=== PATIENT | female | born 2000 | race Caucasian/White ===

== ENCOUNTER 2019-09-15 21:56 | Emergency (ER) | payer BC, OTHER ==
[~2019-09-15] VITALS: Ht 165 cm; Wt 70.5 kg
[2019-09-15] MEDS ORDERED: KETOROLAC 30 MG/ML VIAL IVP ONE (22:30)
[2019-09-15 22:31] LABS: BASOPHILS % (AUTO) 0 % (0-10); EOSINOPHILS % (AUTO) 0 % (0-10); HEMATOCRIT 45 % (35-52); HEMOGLOBIN 15.1 G/DL (11.5-16.0); LYMPHOCYTES # (AUTO) 2.1 X 10^3 (1.0-4.0); LYMPHOCYTES % (AUTO) 28 % (12-44); MEAN CORPUSCULAR HEMOGLOBIN 32 PG (25-34); MEAN CORPUSCULAR HGB CONC 34 G/DL (32-36); MEAN CORPUSCULAR VOLUME 95 FL (80-99); MEAN PLATELET VOLUME 10.5 FL (7.4-10.4); MONOCYTES # (AUTO) 0.7 X 10^3 (0.0-1.0); MONOCYTES % (AUTO) 9 % (0-12); NEUTROPHILS # (AUTO) 4.8 X 10^3 (1.8-7.8); NEUTROPHILS % (AUTO) 63 % (42-75); PLATELET COUNT 293 10^3/uL (130-400); RED CELL DISTRIBUTION WIDTH 13.2 % (10.0-14.5); WHITE BLOOD COUNT 7.7 10^3/uL (4.3-11.0)
[2019-09-15 22:34] LABS: ALBUMIN 4.5 GM/DL (3.2-4.5); CHLORIDE 107 MMOL/L (98-107); SODIUM 138 MMOL/L (135-145)
[2019-09-15 22:35] LABS: CALCIUM 9.3 MG/DL (8.5-10.1)
[2019-09-15 22:37] LABS: GLUCOSE 105 MG/DL (70-105); TOTAL PROTEIN 8.1 GM/DL (6.4-8.2)
[2019-09-15 22:38] LABS: BILIRUBIN,TOTAL 0.4 MG/DL (0.1-1.0); CARBON DIOXIDE 18 MMOL/L (21-32)
[2019-09-15 22:40] LABS: ALKALINE PHOSPHATASE 51 U/L (40-136); CREATININE SERUM 0.82 MG/DL (0.60-1.30); GFR ESTIMATED > 60
[2019-09-15 22:41] LABS: BUN/CREATININE RATIO 15
[2019-09-15 22:43] LABS: ALANINE AMINOTRANSFERASE 17 U/L (0-55)
--- NOTE | 2019-09-15 22:48 | ED Chest Pain ---
General Chief Complaint: Chest Pain Stated Complaint: CP Nursing Triage Note: Pt ambulates to [facility] 6 with c/o left sided CP that radiates to left arm x 20 min, pain is worse with pressure. 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 Pt is in sinus rythym on arrival, pulse 93. Nursing Sepsis Screen: No Definite Risk Source: patient Exam Limitations: no limitations History of Present Illness Date Seen by Provider: Sep 15, 2019 Time Seen by Provider: 22:05 Initial Comments This 19-year-old young lady presents to the emergency room with left upper chest pain and numbness that radiated into the left arm this started suddenly while she was talking on the phone. Deep breathing, movement, and walking worsened of the symptoms. They have improved now, but the chest pain is still present to a lesser degree. She has no neurologic deficits. She denies any cough, fever, travel, or exposures to COVID-19 or persons under investigation. She has history of cardiac surgery as a very young child. 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 Pain is reproducible on palpation of the left upper chest. She denies and takes control. She believes she is starting her period now. She denies smoking and rarely drinks alcohol. She appears anxious and is tearful. Allergies and Home Medications Allergies Coded Allergies: No Known Drug Allergies (Unverified , 09/15/19) Patient Home Medication List Home Medication List Reviewed: Yes Review of Systems Review of Systems Constitutional: no symptoms reported EENTM: No Symptoms Reported Respiratory: See HPI Cardiovascular: See HPI Gastrointestinal: No Symptoms Reported Genitourinary: No Symptoms Reported Musculoskeletal: see HPI Skin: no symptoms reported Psychiatric/Neurological: See HPI Endocrine: No Symptoms Reported Hematologic/Lymphatic: No Symptoms Reported Past Udyqpim-Ngupzn-Lklhmi Hx Patient Social History Alcohol Use: Rarely Uses Recreational Drug Use: No Smoking Status: Never a Smoker 2nd Hand Smoke Exposure: No Recent Foreign Travel: No Contact w/Someone Who Travel: No Recent Infectious Disease Expo: No Recent Hopitalizations: No Physical Abuse: No Sexual Abuse: No Mistreated: No Fear: No Seasonal Allergies Seasonal Allergies: No Past Medical History Surgeries: Yes (AV canal repair at 1 yrs old ) Cardiac Respiratory: No Cardiac: Yes (AV Canal Sx, congenital heart defect) Neurological: No : No Last Menstrual Period: Sep 15, 2019 Reproductive Disorders: No Genitourinary: No Gastrointestinal: No Musculoskeletal: No Endocrine: No HEENT: No Cancer: No Psychosocial: Yes ADD/ADHD, Anxiety, Depression Integumentary: No Blood Disorders: No Physical Exam Vital Signs Vital Signs - First Documented 09/15/19 22:27 Temp 36.4 Pulse 93 Resp 18 B/P (MAP) 131/90 (104) Pulse Ox 98 O2 Delivery Room Air Capillary Refill : Less Than 3 Seconds Height, Weight, BMI Height: '" Weight: lbs. oz. 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, Other (anxious, tearful) Skin: Normal Color, Warm/Dry Progress/Results/Core Measures Results/Orders Lab Results Laboratory Tests Test 09/15/19 22:13 09/16/19 01:05 Range/Units White Blood Count 7.7 4.3-11.0 10^3/uL Red Blood Count 4.69 4.35-5.85 10^6/uL Hemoglobin 15.1 11.5-16.0 G/DL Hematocrit 45 35-52 % Mean Corpuscular Volume 95 80-99 FL Mean Corpuscular Hemoglobin 32 25-34 PG Mean Corpuscular Hemoglobin Concent 34 32-36 G/DL Red Cell Distribution Width 13.2 10.0-14.5 % Platelet Count 293 130-400 10^3/uL Mean Platelet Volume 10.5 H 7.4-10.4 FL Neutrophils (%) (Auto) 63 42-75 % Lymphocytes (%) (Auto) 28 12-44 % Monocytes (%) (Auto) 9 0-12 % Eosinophils (%) (Auto) 0 0-10 % Basophils (%) (Auto) 0 0-10 % Neutrophils # (Auto) 4.8 1.8-7.8 X 10^3 Lymphocytes # (Auto) 2.1 1.0-4.0 X 10^3 Monocytes # (Auto) 0.7 0.0-1.0 X 10^3 Eosinophils # (Auto) 0.0 0.0-0.3 10^3/uL Basophils # (Auto) 0.0 0.0-0.1 10^3/uL Prothrombin Time 12.9 12.2-14.7 SEC INR Comment 0.9 0.8-1.4 Activated Partial Thromboplast Time 26 24-35 SEC D-Dimer 0.36 0.00-0.49 UG/ML Sodium Level 138 135-145 MMOL/L Potassium Level 4.0 3.6-5.0 MMOL/L Chloride Level 107 98-107 MMOL/L Carbon Dioxide Level 18 L 21-32 MMOL/L Anion Gap 13 5-14 MMOL/L Blood Urea Nitrogen 12 7-18 MG/DL Creatinine 0.82 0.60-1.30 MG/DL Estimat Glomerular Filtration Rate > 60 BUN/Creatinine Ratio 15 Glucose Level 105 70-105 MG/DL Calcium Level 9.3 8.5-10.1 MG/DL Corrected Calcium 8.9 8.5-10.1 MG/DL Magnesium Level 2.0 1.6-2.4 MG/DL Total Bilirubin 0.4 0.1-1.0 MG/DL Aspartate Amino Transf (AST/SGOT) 48 H 5-34 U/L Alanine Aminotransferase (ALT/SGPT) 17 0-55 U/L Alkaline Phosphatase 51 40-136 U/L Myoglobin 463.8 H 10.0-92.0 NG/ML Troponin I < 0.028 < 0.028 <0.028 NG/ML Total Protein 8.1 6.4-8.2 GM/DL Albumin 4.5 3.2-4.5 GM/DL Serum Test, Qualitative NEGATIVE NEGATIVE My Orders Orders - JESSE ALEJANDRO MD Cbc With Automated Diff (09/15/19 22:19) Magnesium (09/15/19 22:19) Chest 1 View, Ap/Pa Only (09/15/19 22:19) Ekg Tracing (09/15/19 22:19) Comprehensive Metabolic Panel (09/15/19 22:19) Myoglobin Serum (09/15/19 22:19) Protime With Inr (09/15/19:) Partial Thromboplastin Time (09/15/19:) O2 (09/15/19 22:19) Monitor-Rhythm Ecg Trace Only (09/15/19:) Lipid Panel (09/16/19 06:00) Ed Iv/Invasive Line Start (09/15/19:19) Troponin I (09/15/19:19) Hcg,Qualitative Serum (09/15/19:) Ketorolac Injection (Toradol Injection) (09/15/19 22:30) Fibrin Degradation Products (09/15/19 22:13) Troponin I (09/16/19 00:45) Aspirin Chewable Tablet (Baby Aspirin Ch (09/15/19 23:15) Medications Given in ED Current Medications Medications Dose Ordered Sig/Celestino Route Start Time Stop Time Status Last Admin Dose Admin Aspirin 324 mg ONCE ONCE PO 09/15/19 23:15 09/15/19 23:16 DC 09/15/19 23:15 324 MG Ketorolac Tromethamine 15 mg ONCE ONCE IVP 09/15/19 22:30 09/15/19 22:31 DC 09/15/19 22:25 15 MG Vital Signs/I&O 09/15/19 09/15/19 22:27 22:33 Temp 36.4 Pulse 93 Resp 18 B/P (MAP) 131/90 (104) Pulse Ox 98 O2 Delivery Room Air Room Air Blood Pressure Mean: 104 Progress Progress Note #1: Time: 23:05 Progress Note Workup was unremarkable except for some slight elevation in myoglobin. For this reason a troponin 4 hours after onset of pain will be obtained. Patient's pain was treated with Toradol. She will also be given aspirin as part of the chest pain orders. Patient feels improved and reports minimal tightness in the chest at this time. Progress Note #2: Time: 01:35 Progress Note She is feeling significantly improved. Repeat troponin was negative. Initial ECG Impression Date: Sep 15, 2019 Initial ECG Impression Time: 22:12 Initial ECG Rate: 94 Initial ECG Rhythm: Normal Sinus Comment Normal sinus rhythm with no ST elevation or depression. No abnormal intervals. LVH by automated read. Diagnostic Imaging Diagonstic Imaging: Xray Plain Films/CT/US/NM/MRI: chest Comments Two-view chest x-ray viewed by me. Report not yet available. No acute abnormalities appreciated. Departure Impression Primary Impression: Atypical chest pain Additional Impression: Left arm numbness Disposition: 01 HOME, SELF-CARE Condition: Improved Departure-Patient Inst. Decision time for Depature: 23:06 Referrals: NO,LOCAL PHYSICIAN (PCP/Family) Primary Care Physician Patient Instructions: Chest Pain That Is Not Caused by the Heart (DC) Add. Discharge Instructions: Follow-up with your primary care provider soon as possible. You may take Tylenol (acetaminophen) and/or ibuprofen for pain. Return to care if you have worsening symptoms. All discharge instructions reviewed with patient and/or family. Voiced u nderstanding. JESSE ALEJANDRO MD Sep 15, 2019 22:48
[2019-09-15 22:52] LABS: FIBRIN DEGRADATION PRODUCTS 0.36 UG/ML (0.00-0.49); INR 0.9 (0.8-1.4); PROTHROMBIN TIME PATIENT 12.9 SEC (12.2-14.7)
[2019-09-15] MEDS ORDERED: ASPIRIN 81 MG CHEW (CHILDREN'S ASA) PO ONE (23:15)
[2019-09-16 01:46] VITALS: BP 126/79
--- NOTE | 2019-09-16 05:41 | Diagnostic Imaging Report ---
EXAMINATION: AP upright portable chest. INDICATION: Left chest pain that radiates to the arm. COMPARISON: None available. FINDINGS: The lungs are clear and the pulmonary vasculature is normal. No pneumothorax or large pleural effusion. Heart size and mediastinal contours are normal. No acute osseous abnormality is appreciated. Median sternotomy wires are in place, without findings to suggest sternal dehiscence. IMPRESSION: No radiographic evidence of acute chest disease. Dictated by: Dictated on workstation # [id number]
== END 2019-09-16 01:55 | disposition home or self-care (01) ==
LOC: ER 21:58
DX: R07.89 Other chest pain (principal); R20.0 Anesthesia of skin
CPT/HCPCS: 36415; 71045; 80053; 83735; 83874; 84484; 84703; 85025; 85379; 85610; 85730; 93005; 93041